=== PATIENT | female | born 1990 | race African-American/Black ===

== ENCOUNTER 2019-12-21 13:25 | Emergency (ER) | payer MEDICAID ==
[~2019-12-21] VITALS: Ht 165.1 cm; Wt 84.1 kg
[2019-12-21 13:51] VITALS: BP 126/62; TEMP 98.7
[2019-12-21] MEDS ORDERED: PRENATAL TABLET PO (14:36)
[2019-12-21 14:45] LABS: COLLECTION METHOD CLEAN CATCH
[2019-12-21 14:55] LABS: PH 6 (5-8); SQUAMOUS EPITHELIAL 0-2 /hpf; URINE APPEARANCE Clear; URINE BACTERIA Rare /hpf; URINE BILIRUBIN Negative (NEGATIVE); URINE BLOOD Negative (NEGATIVE); URINE COLOR Yellow; URINE GLUCOSE Negative (NEGATIVE); URINE KETONE Negative (NEGATIVE); URINE LEUKOCYTE ESTERASE 1+ (NEGATIVE); URINE NITRATE Negative (NEGATIVE); URINE PROTEIN(semi-quant) Negative (NEGATIVE); URINE RBC 0-2 /hpf; URINE UROBILINOGEN Negative (NEGATIVE)
[2019-12-21] MEDS ORDERED: PHENERGAN 25 TA25 MG PO (15:59)
[2019-12-21] MEDS ORDERED: PHENERGAN25 MG RC (15:59)
[2019-12-21 16:40] VITALS: PULSE 75
== END 2019-12-21 16:45 | disposition home or self-care (01) ==
LOC: COL.ER 13:25
PROVIDERS: Physician Assistant
DX: O21.0 Mild hyperemesis gravidarum (principal); O99.321 Drug use complicating pregnancy, first trimester; F11.90 Opioid use, unspecified, uncomplicated; Z3A.01 Less than 8 weeks gestation of pregnancy
CPT/HCPCS: J2550; J7030

== ENCOUNTER 2020-06-09 19:04 | Outpatient (CLI) | payer MEDICAID ==
[~2020-06-09] VITALS: Ht 162.6 cm; Wt 92.7 kg
[~2020-06-09 19:04] MED LIST: PHENERGAN 25 TA25 MG PO; PHENERGAN25 MG RC; PRENATAL TABLET PO
--- NOTE | 2020-06-09 19:05 | NUR ---
PT ARRIVED TO UNIT AMBULATORY WITH CONCERNS OF POSSIBLE SROM. PT TO ROOM, CHANGED INTO GOWN, EFMX2 APPLIED, VS OBTAINED, AMNIOSWAB WAS NEGATIVE, NO LOF VISUALIZED, SVE PERFORMED, PT IS FINGERTIP.
[2020-06-09 19:15] VITALS: BP 126/85; PULSE 77; TEMP 98.3
[2020-06-09 19:30] VITALS: BP 126/85; PULSE 77; TEMP 98.3
[2020-06-09] MEDS ORDERED: ZOFRAN 4MG T4 MG/TAB PO (20:14)
[2020-06-09] MEDS ORDERED: TYLENOL 500MG500 MG PO (20:15)
--- NOTE | 2020-06-09 20:30 | NUR ---
1924- DR. GOODWIN NOTIFIED OF PT ARRIVAL TO THE UNIT WITH CONCERNS OF POSSIBLE SROM. AMNIOSWAB PERFORMED, WAS NEGATIVE, NO FLUID VISUALIZED AT PERINEUM, SVE OF FINGERTIP. REACTIVE FHT'S, CONTRACTIONS EVERY 2-4 MINUTES, PT STATES SHE CAN FEEL WHEN THE CONTRACTIONS ARE HAPPENING BUT THEY ARE MORE UNCOMFORTABLE THAN PAINFUL. DR. GOODWIN ORDERS FOR MONITORING TO CONTINUE FOR A FULL HOUR, IF STRIP REMAINS REACTIVE AND NO FURTHER LEAKING OF FLUID STATED BY THE PATIENT SHE MAY DC HOME AT THAT TIME. 2014- PT DENIES LOF, STRIP REMAINS REACTIVE. MONITORING DC'D AT THIS TIME. DISCHARGE INSTRUCTIONS REVIEWED WITH PT, UNDERSTANDING VERBALIZED. 2029- PT OFF THE UNIT AMBULATORY FOR HOME.
== END 2020-06-09 20:30 | disposition home or self-care (01) ==
LOC: LDRO 19:04
DX: Z34.93 Encounter for supervision of normal pregnancy, unspecified, third trimester (principal); Z3A.31 31 weeks gestation of pregnancy

== ENCOUNTER 2020-07-10 15:11 | Inpatient (IN) | payer MEDICAID ==
[~2020-07-10] VITALS: Ht 162.7 cm; Wt 94.1 kg
[~2020-07-10 15:11] MED LIST changes: -ACTIGALL 300MG300 MG; -ATARAX 25MG25 MG/TAB PO; -BENADRYL25 M2 PO; -MOTRIN 800800 MG/TAB PO; -NORCO 325 MG-51 TAB PO
[2020-07-15] VITALS (62 sets, daily range): BP systolic 109–158; BP diastolic 60–88; PULSE 67–123; TEMP 97.5–98.3
[2020-07-15] MEDS ORDERED: ACTIGALL 300MG300 MG (08:05)
[2020-07-15] MEDS ORDERED: ATARAX 25MG25 MG/TAB PO (08:06)
[2020-07-15] MEDS ORDERED: BENADRYL25 M2 PO (08:06)
--- NOTE | 2020-07-15 08:25 | NUR ---
PT HERE FOR INDUCTION OF LABOR. THIS COMPLICATED BY CHOLESTASIS WAS PT'S FIRST . FHT'S FOUND IN THE 130'S WITH MODERATE VARIABILITY AND ACCELS. IV STARTED IN LEFT HAND WITH LR INFUSING WITHOUT DIFFICULTY. VANCOMYCIN 1GM STARTED PER IV AT 0800 FOR GBS POSITIVE PT IS ALLERGIC TO PENICILLIN. PLAN OF CARE REVIEWED AND ASSESSMENT COMPLETED. CONSENTS SIGNED.
--- NOTE | 2020-07-15 09:00 | NUR ---
DR ANDERSON IN AT 0856. SVE /-3. AROM AT 0900 WITH CLEAR FLUID.
[2020-07-15 09:01] LABS: BASO % 0.3 % (0.0-2.0); EOS % 0.5 % (0-4.0); GRAN # 5.6 (1.4-6.5); GRAN % 63.5 % (42.2-75.2); HEMOGLOBIN 12.2 g/dl (12.5-16.0); LYMPH # 2.3 (1.2-3.4); MEAN CELL VOLUME 86 fl (80.0-100.0); MEAN CORPUSCULAR HEMOGLOBIN 29 pg (27.0-31.0); MEAN CORPUSCULAR HGB CONC 33 g/dl (33.0-37.0); MEAN PLATELET VOLUME 12.3 fl (7.4-10.4); MONO # 0.8 (0.1-0.6); MONO % 8.8 % (1.7-9.3); PLATELET COUNT 171 K/mm3 (130-400); RED BLOOD COUNT 4.26 M/mm3 (4.10-5.30); REDCELL DISTRIBUTION WIDTH-CV 13.4 % (11.5-14.5)
[2020-07-15 09:10] LABS: HEMATOCRIT 36.8 % (37.0-47.0)
[2020-07-15 09:27] LABS: ALBUMIN 3.3 gm/dL (3.5-5.0); BILIRUBIN,TOTAL 0.5 mg/dL (0.0-1.0); CALCIUM 8.6 mg/dL (8.4-10.2); CREATININE, serum 0.49 (0.52-1.25); POTASSIUM 3.7 mmol/L (3.4-5.0); TOTAL PROTEIN 6.6 gm/dL (6.4-8.2)
--- NOTE | 2020-07-15 09:45 | NUR ---
NOT ENOUGH TIME TO INTEPRET FHT BASELINE PT WAS IN THE BATHROOM FOR OVER 10 MINUTES.
[2020-07-15 10:10] LABS: TRICYCLIC ANTIDEPRESS URINE NEGATIVE
--- NOTE | 2020-07-15 11:00 | NUR ---
PT WANTING AN EPIDURAL. NOTIFIED HER THE WELL LOGGING CAPTAIN IS PLACING ONE IN ANOTHER ROOM AND WILL DO HERS ONCE HE IS DONE.
--- NOTE | 2020-07-15 11:45 | NUR ---
PT SITTING AT EDGE OF BED FOR EPIDURAL PLACEMENT. FHT'S DIFFICULT TO MONITOR WITH PT SITTING. RAKAN FELICIANO CRNA, IN AT 1135 FOR PLACEMENT. SPO2 ON PT.
--- NOTE | 2020-07-15 12:00 | NUR ---
TEST DOSE FOR EPIDURAL AT 1148 WITH NO ABNORMAL SYMPTOMS OBSERVED OR REPORTED. PT REPOSITIONED LYING DOWN AFTER EPIDURAL. PT HEART RATE FLUCTUATING FROM 90'S TO 140'S ON MONITOR. RADIAL PULSE CHECK VERIFIES PULSE. PT REPORTS THIS HAS HAPPENED THROUGHOUT HER , THE RAPID INCREASES IN HEART RATE AND THEN IT DROPS. PT STATES SHE HAS TOLD DR ANDERSON ABOUT THIS.
--- NOTE | 2020-07-15 12:15 | NUR ---
DR ANDERSON PHONED HERE AT 1215. NOTIFIED HER OF EPIDURAL PLACEMENT, PITOCIN RATE AND OF MATERNAL INCREASE IN HEART RATE PERIODICALLY. SHE CHECKS MONITOR STRIP IN OFFICE AND STATES SHE THINKS IT HAS SOMETHING TO DO WITH RETURN OF BLOOD BACK TO THE HEART WITH CONTRACTIONS SINCE THE INCREASES OCCUR WITH CONTRACTIONS.
--- NOTE | 2020-07-15 12:30 | NUR ---
SVE WITH NO FURTHER DILATION BUT CERVIX IS NOT MIDPOSITION AND STATION IS NOT -2. CALLED DR ANDERSON AT 1220 WITH UPDATE ON SVE. ORDOÑEZ CATHETER PLACED AT 1230. PT REPOSITIONED WITH PEANUT BALL.
--- NOTE | 2020-07-15 12:59 | NUR ---
FHT'S DIFFICULT TO MONITOR. MOM REPORTS BABY IS MOVING AND CAN HEAR THE MOVEMENT WELL.
--- NOTE | 2020-07-15 13:15 | NUR ---
FHT'S REMAIN DIFFICULT TO MONITOR. FSE APPLIED BY Satish HEBERT RN. FHT'S FOUND IN THE 120'S WITH MINIMAL VARIABILITY AFTER FSE APPLIED
--- NOTE | 2020-07-15 13:45 | NUR ---
RECURRENT VARIABLE DECELS CONTINUE. PT REPOSITIONED 3 TIMES. FLUID BOLUS STARTED. SVE UNCHANGED: /-2.
--- NOTE | 2020-07-15 14:15 | NUR ---
1407-DR ANDERSON CALLED HERE AND REPORTS SHE THINKS THE FHT'S LOOK BETTER, NOW SEEING EARLY DECELS NOW AND THIS RN AGREES. SHE WANTS PITOCIN INCREASED TO 20MU SHE FEELS THE FLUID BOLUS SPACED OUT THE CONTRACTIONS.
--- NOTE | 2020-07-15 14:32 | NUR ---
CONTRACTIONS DIFFICULT TO MONITOR. REPOSITIONED TOCO.
--- NOTE | 2020-07-15 14:45 | NUR ---
REPOSITIONED DEREK AND SUBSEQUENT DEEP VARIABLE. REPOSITIONED WEDGE LEFT PEANUT BALL AND AGAIN WITH DEEP VARIABLES, REPOSITIONED WEDGE RIGHT. SVE UNCHANGED.
--- NOTE | 2020-07-15 15:45 | NUR ---
DR ANDERSON CALLED HERE AT 1535. UPDATED ON NO CHANGE IN SVE, FHT'S WITH LESS VARIABLES, PITOCIN AT 20MU. DR CAN SEE MONITOR STRIP AND WANTS CONTRACTIONS AT LEAST 5 EVERY 10 MINUTES AND THUS WANTS PITOCIN INCREASED TO ACHIEVE THIS. PITOCIN TO 22MU AT 153
--- NOTE | 2020-07-15 16:00 | NUR ---
FHT'S WITH DEEP VARIABLES. REPOSITIONED PT TO WEDGE LEFT AND THEN WEDGE LEFT WITH PEANUT BALL. BOLUS STARTED REPOSITIONED TOCO TO BETTER MONITOR CONTRACTIONS.
--- NOTE | 2020-07-15 16:15 | NUR ---
CONTRACTIONS REMAIN DIFFICULT TO MONITOR. REPOSITIONED TOCO. PT MOVING AROUND A GREAT DEAL IN BED SAYING HER BACK IS ITCHING. DOES NOT WANT BENDARYL AT THIS TIME. FHT'S WITH VARIABLES AND ONE LATE DECEL.
--- NOTE | 2020-07-15 17:00 | NUR ---
CONTRACTIONS PALPATING MODERATE TO FIRM. UNABLE TO MONITOR THEM DESPITE REPOSITIONING TOCO. WILL CONTACT DR ANDERSON
--- NOTE | 2020-07-15 17:15 | NUR ---
PHONED DR ANDERSON AT 1705 ASKING FOR AN [facility] CONTRACTIONS ARE HARD TO MONITOR DESPITE REPOSITIONING TOCO NUMEROUS TIMES. CONTRACTIONS NOT PALPATING FIRM EARLIER EITHER. LIANG CLAIRE, TO TELL DR ANDERSON. FHT'S WITH ACCELS AND ALSO WITH RECURRENT VARIABLES. VARIABILITY MINIMAL TO MODERATE.
--- NOTE | 2020-07-15 17:30 | NUR ---
PER LIANG [place], DR ANDERSON PHONED AND WILL COME OVER TO PLACE [facility] WHEN SHE IS DONE WITH CLINIC.
--- NOTE | 2020-07-15 17:45 | NUR ---
PT HAVING HEARTBURN AND FEELING NAUSEATED. VOMITING AT 1743.
--- NOTE | 2020-07-15 18:00 | NUR ---
DR ANDERSON IN AT 175. [facility] PLACED AT [address] ANDERSON DISCUSSES PLAN OF CARE WITH PT. PT WANTS TO PROCEED WITH LABOR INDUCTION VS A AT THIS TIME. WONDERS IF THE BAG OF PITOCIN IS BAD SO NEW BAG OF PITOCIN HUNG.
--- NOTE | 2020-07-15 18:15 | NUR ---
DR ANDERSON IN AT 1808 WITH ORDER RECEIVED TO DECREASE PITOCIN TO 20MU AND INCREASE BY 2MU EVERY 15MINUTES TO MAX OF 40MU. PT IS TO BE CHECKED HOURLY AND DR ANDERSON IS TO BE CALLED HOURLY. PT STATES IF SHE HASN'T MADE ADEQUATE, PROGRESSIVE CHANGE BY 0 SHE WANTS TO PROCEED WITH . DR ANDERSON HERE FOR THIS CONVERSATION.
--- NOTE | 2020-07-15 18:15 | NUR ---
Report received from Radha TAVERA. Pt comfortable wedged left with peanut ball and not wanting to reposition at this time. Plan of care explained. 1914: SVE completed and pt repositioned to wedge right with peanut ball. 1921: called and updated on pts status. Provider at home reviewing FHR strip. See physican notification. 1934: FHR with recurrent deep varibales noted down to 65bpm at lowest point. called and notified on unable to increase pitocin. See physican notification. New orders received. 1939: Pt repositioned to left lateral with peanut ball.
--- NOTE | 2020-07-15 20:15 | NUR ---
SVE unchanged and cervix more posterior with this cervical check. Plan of care explained to pt and significant other. Questions answered. Second bag of vancomycin hung at this time per orders. 2024: notified and updated. Provider at home reviewing FHR strip and thinks it is time for a . Orders to speak with pt and give her a call back. See physican notification. 2028: Pt ready for . called and requested at hospital for more questions from pt and significant other. See phyiscan notification. 2044: at bedside and pts questions answered. Decision made at this time. 2051: Monitors off and pt assisted back to OR for . Significant other at pts bedside.
[2020-07-16] VITALS (8 sets, daily range): BP systolic 107–125; BP diastolic 60–80; PULSE 68–85; TEMP 97.9–98.9
--- NOTE | 2020-07-16 07:45 | NUR ---
Assist patient with . Offered to feed baby bottle after feeding because of lower blood sugar. Refuses bottle. Sns done. Denies any pain or discomfort at this time.
--- NOTE | 2020-07-16 09:28 | NUR ---
Dr. Carcamo here, visits with patient. [place] 5/325 mg two given per request and as ordered.
--- NOTE | 2020-07-16 10:08 | NUR ---
Initial visit; Parents thanked Superintendent Meters for offering congratulations and God's blessings for the of their daughter. Superintendent Meters thanked family for choosing [facility].
--- NOTE | 2020-07-16 13:30 | NUR ---
[place] 5, two tabs given per request and as ordered.
--- NOTE | 2020-07-16 17:36 | NUR ---
Rests in bed, alert. [place] 5/325 mg two given per request and as ordered.
[2020-07-17 06:33] VITALS: BP 113/83; PULSE 90; TEMP 97
[2020-07-17] MEDS ORDERED: MOTRIN 800800 MG/TAB PO (08:26)
[2020-07-17] MEDS ORDERED: NORCO 325 MG-51 TAB PO (08:26)
--- NOTE | 2020-07-17 12:52 | NUR ---
ABIMAEL responded to consult. The patient admitted to marijuana use during . Her UDS was negative for cannabinoids. ABIMAEL met with the patient and the father of baby, Abraham. The patient lives in [place] with Abraham. She states that she has family support nearby. She states that she was working before having baby. Abraham states that he also has a job and is working. The patient reports that she has a carseat and all supplies for baby. She states that she still needs to contact [facility] and asked for their contact information. ABIMAEL provided the patient with [facility]'s Resource packet with the contact information for [facility]. ABIMAEL addressed the patient's marijuana use. The patient reports that she last used three months ago. It helped her with her nausea. She states that her OGBYN was aware of her testing positive three months ago and had a discussion with her about this and the need to quit. She states that she quit after that and does not have any concerns about using marijuana again, when she brings baby home. She states that she plans on . The patient and Abraham had no other questions or concerns for ABIMAEL. ABIMAEL updated the patient's RN on the above information. ABIMAEL made a CPS report. Intake ID#[id number]. The baby's cord blood is pending.
== END 2020-07-17 16:15 | disposition home or self-care (01) | DRG 786 ==
LOC: OB 15:11 → LDR 07-15 07:25 → OB 07-15 15:17
PROVIDERS: ADMIT Obstetrics & Gynecology
PROC: 10D00Z1 Extraction of Products of Conception, Low, Open Approach (ICD-10-PCS; principal; 2020-07-15)
DX: O99.824 Streptococcus B carrier state complicating childbirth (principal); K83.1 Obstruction of bile duct; Z3A.36 36 weeks gestation of pregnancy; Z37.0 Single live birth; O99.214 Obesity complicating childbirth; E66.9 Obesity, unspecified; O72.1 Other immediate postpartum hemorrhage; O26.62 Liver and biliary tract disorders in childbirth
CPT/HCPCS: J1100; J1885; J2210; J2405; J2590; J2704; J3010; J3370; J7050; J7120

== ENCOUNTER → 2020-07-10 | Outpatient (CLI) | payer MEDICAID ==
[~2020-07-10] MED LIST changes: +ACTIGALL 300MG300 MG; +ATARAX 25MG25 MG/TAB PO; +BENADRYL25 M2 PO; +MOTRIN 800800 MG/TAB PO; +NORCO 325 MG-51 TAB PO; +TYLENOL 500MG500 MG PO; +ZOFRAN 4MG T4 MG/TAB PO
== END ==
LOC: ZCOL.LAB 08:00
DX: Z20.828 Contact with and (suspected) exposure to other viral communicable diseases (principal)

== ENCOUNTER 2022-02-11 03:33 | Emergency (ER) | payer MEDICAID ==
[~2022-02-11] VITALS: Ht 162.6 cm; Wt 98.6 kg
[~2022-02-11 03:33] MED LIST changes: +ACTIGALL 300MG300 MG; +ATARAX 25MG25 MG/TAB PO; +BENADRYL25 M2 PO; +MOTRIN 800800 MG/TAB PO; +NORCO 325 MG-51 TAB PO
[2022-02-11 03:41] VITALS: TEMP 97.9
[2022-02-11] MEDS ORDERED: BACTRIM DS 8001 TAB PO (04:46)
[2022-02-11] MEDS ORDERED: CEPHALEXIN500 M1 PO (04:46)
[2022-02-11 04:57] VITALS: BP 137/80; PULSE 78
== END 2022-02-11 05:16 | disposition home or self-care (01) ==
LOC: COL.ER 03:33
DX: L02.415 Cutaneous abscess of right lower limb (principal); F17.210 Nicotine dependence, cigarettes, uncomplicated
CPT/HCPCS: J0696